=== PATIENT | female | born 1965 | race Caucasian/White ===

== ENCOUNTER 2018-09-24 09:45 | Emergency (ER) | payer SELFPAY ==
[~2018-09-24] VITALS: Ht 152.4 cm; Wt 70.0 kg
[2018-09-24 09:46] VITALS: Ht 152.4 cm; Wt 70.0 kg
[2018-09-24] MEDS ORDERED: morphine 4 MG/ML VIAL IV STA (10:02)
[2018-09-24] MEDS ORDERED: ONDANSETRON 4 MG INJ IV STA (10:02)
--- NOTE | 2018-09-24 10:13 | ERD ---
ER Documentation Chief Complaint Chief Complaint sent by pmd , lt flank pain x 2 hrs HPI 53-year-old female presenting with left-sided flank pain, severe, 9 out of 10, that started today. She denies any associated fever or chills. No hematuria or dysuria but had some nausea. She does have a history of UTI a few months ago. She states her left flank pain is aching, radiates to her low left lower abdomen. No alleviating or exacerbating factors. Pain has been continuous. ROS All systems reviewed and are negative except as per history of present illness. Medications Home Meds Active Scripts Ibuprofen* (Motrin*) 600 Mg Tab, 600 MG PO Q6H PRN for PAIN AND OR ELEVATED TE MP, #30 TAB Prov:MARILYN KENT MD 09/24/18 Ciprofloxacin Hcl* (Ciprofloxacin Hcl*) 500 Mg Tablet, 500 MG PO BID for 7 Days, TAB Prov:MARILYN KENT MD 09/24/18 Allergies Allergies: Coded Allergies: No Known Allergy (Unverified , 09/24/18) PMhx/Soc History of Surgery: No Anesthesia Reaction: No Hx Neurological Disorder: No Hx Respiratory Disorders: No Hx Cardiac Disorders: No Hx Psychiatric Problems: No Hx Miscellaneous Medical Probl: Yes (Cholesterol) Hx Alcohol Use: No Hx Substance Use: No Hx Tobacco Use: No Smoking Status: Never smoker FmHx Family History: No diabetes Physical Exam Vitals Vital Signs Date Temp Pulse Resp B/P (MAP) Pulse Ox O2 O2 Flow FiO2 Time Delivery Rate 09/24/18 98.4 96 18 125/61 98 Room Air 12:22 (82) 09/24/18 98.2 90 16 115/53 100 Room Air 4.0 10:19 (73) 09/24/18 98.6 112 18 99/55 (70) 100 09:46 Physical Exam Const: In significant distress secondary to pain Head: Atraumatic Eyes: Normal Conjunctiva ENT: Normal External Ears, Nose and Mouth. Neck: Full range of motion. No meningismus. Resp: Clear to auscultation bilaterally Cardio: Regular rate and rhythm, no murmurs Abd: Soft, non tender, non distended. Normal bowel sounds Skin: No petechiae or rashes Back: Left flank tenderness Ext: No cyanosis, or edema Neur: Awake and alert Psych: Normal Mood and Affect Result Diagram: 09/24/18 1004 09/24/18 1004 Results 24 hrs Laboratory Tests Test 09/24/18 10:04 White Blood Count 13.0 10^3/ul Red Blood Count 3.72 10^6/ul Hemoglobin 10.3 g/dl Hematocrit 33.0 % Mean Corpuscular Volume 88.7 fl Mean Corpuscular Hemoglobin 27.7 pg Mean Corpuscular Hemoglobin Concent 31.2 g/dl Red Cell Distribution Width 14.3 % Platelet Count 303 10^3/UL Mean Platelet Volume 9.9 fl Immature Granulocytes % 0.700 % Neutrophils % 80.7 % Lymphocytes % 10.0 % Monocytes % 7.9 % Eosinophils % 0.5 % Basophils % 0.2 % Nucleated Red Blood Cells % 0.0 /100WBC Immature Granulocytes # 0.090 10^3/ul Neutrophils # 10.5 10^3/ul Lymphocytes # 1.3 10^3/ul Monocytes # 1.0 10^3/ul Eosinophils # 0.1 10^3/ul Basophils # 0.0 10^3/ul Nucleated Red Blood Cells # 0.0 10^3/ul Urine Color YELLOW Urine Clarity TURBID Urine pH 6.0 Urine Specific [place] 1.011 Urine Ketones NEGATIVE mg/dL Urine Nitrite NEGATIVE mg/dL Urine Bilirubin NEGATIVE mg/dL Urine Urobilinogen NEGATIVE mg/dL Urine Leukocyte Esterase 3+ [place]/ul Urine Microscopic RBC 71 /HPF Urine Microscopic WBC > 182 /HPF Urine Squamous Epithelial Cells FEW /HPF Urine Bacteria MODERATE /HPF Urine Mucus FEW /HPF Urine Hemoglobin 2+ mg/dL Urine Glucose NEGATIVE mg/dL Urine Total Protein NEGATIVE mg/dl Sodium Level 141 mmol/L Potassium Level 4.1 mmol/L Chloride Level 105 mmol/L Carbon Dioxide Level 27 mmol/L Anion Gap 9 Blood Urea Nitrogen 19 mg/dl Creatinine 0.81 mg/dl Est Glomerular Filtrat Rate mL/min > 60 mL/min Glucose Level 181 mg/dl Calcium Level 9.4 mg/dl Total Bilirubin 0.4 mg/dl Direct Bilirubin 0.00 mg/dl Indirect Bilirubin 0.4 mg/dl Aspartate Amino Transf (AST/SGOT) 24 IU/L Alanine Aminotransferase (ALT/SGPT) 19 IU/L Alkaline Phosphatase 160 IU/L Total Protein 8.9 g/dl Albumin 4.2 g/dl Globulin 4.70 g/dl Albumin/Globulin Ratio 0.89 Lipase 63 U/L Current Medications Medications Dose Sig/Nabeel Start Time Status Last (Trade) Ordered Route PRN Stop Time Admin Dose Reason Admin Morphine 4 mg ONCE STAT 09/24/18 DC 09/24/18 Sulfate IV 10:02 09/24/18 10:07 (morphine) 10:03 Ondansetron 4 mg ONCE STAT 09/24/18 DC 09/24/18 HCl (Zofran IV 10:02 09/24/18 10:07 Inj) 10:03 Ceftriaxone 50 ml @ ONCE ONCE 09/24/18 DC 09/24/18 Sodium 100 mls/hr IVPB 11:30 09/24/18 11:38 11:59 Procedures/MDM EMERGENT LABS AND DIAGNOSTIC STUDIES: Lab Results above were reviewed and interpreted by me. CBC: Leukocytosis, likely secondary to infection CMP: No evidence of clinically significant electrolyte abnormality, acidosis, renal failure, hypoglycemia, liver disease, or biliary obstruction Lipase: no evidence of pancreatitis UA: evidence of infection Radiology Results as interpreted by Radiology below were reviewed by Gilson Kent MD: CT abdomen and pelvis shows perinephric stranding, possibly consistent with recently passed stone versus pyelonephritis. No stone visualized Initial Nursing notes reviewed. Previous Medical Records requested via the Electronic Health Record. EMERGENCY DEPARTMENT COURSE / MEDICAL DECISION MAKING: Patient is presenting with left flank pain concerning for possible pyelonephritis versus renal colic. She presented in significant distress. She was treated with morphine IV with resolution of her symptoms. CT of the abdomen and pelvis were done to evaluate for kidney stone. CT did not show any evidence of stone but she did show evidence of pyelonephritis. UA is consistent with this as well. Patient was given 1 dose of IV ceftriaxone. Upon reevaluation, she is feeling much better. I do not feel she needs admission and may be discharged with oral antibiotics. Follow-up with PCP recommended within 1 week and return precautions discussed. Prescription for ciprofloxacin given for 7 days. Patient's blood pressure was elevated (>120/80) but appears stable without evidence of hypertensive emergency or urgency. The patient was counseled about the risks of hypertension and urged to pursue outpatient monitoring and therapy within a week with their primary care physician. Departure Diagnosis: Primary Impression: Pyelonephritis Condition: Stable MARILYN KENT MD Sep 24, 2018 10:13
[2018-09-24] MEDS ORDERED: CEFTRIAXONE 1 GM/50 ML (PMX) 50 ML IVPB ONE (11:30)
[2018-09-24] MEDS ORDERED: IBUP-1542 PO (11:38)
[2018-09-24] MEDS ORDERED: CIPR500T4 PO (11:38)
[2018-09-24 12:22] VITALS: BP 125/61; PULSE 96; RESP 18
== END 2018-09-24 12:24 | disposition home or self-care (01) ==
LOC: E/R 09:45
DX: N12 Tubulo-interstitial nephritis, not specified as acute or chronic (principal)
CPT/HCPCS: 36415; 74176; 80053; 81001; 83690; 85025; 87086; 96374; 96375; 99285; J0696; J2270; J2405